=== PATIENT | male | born 1985 | race Caucasian/White ===

== ENCOUNTER → 2022-03-26 | Outpatient (CLI) | payer OTHER ==
[~2022-03-26] MED LIST: BACTRIM DS 8001 TAB PO; CEPHALEXIN250 M1 PO; CLARITIN 1010 MG/TAB; LEVAQUIN 750MG750 M1 PO; MAGIC MOUTH PO; NAPRELAN500 MG; NO HOME MEDICATIONS; NULEV0.125 M1 PO; PEN-VEE K500 MG PO; TYLENOL EXTRA500 M1 PO; ULTRAM 50MG TAB50 MG PO
== END ==
LOC: MHCPAIN 08:20
DX: M47.812 Spondylosis without myelopathy or radiculopathy, cervical region (principal); M54.12 Radiculopathy, cervical region; M25.511 Pain in right shoulder; M25.512 Pain in left shoulder
CPT/HCPCS: G0463

== ENCOUNTER → 2022-04-04 | Outpatient (CLI) | payer OTHER | LOC: MHCPAIN 12:31 | DX: M47.812 Spondylosis without myelopathy or radiculopathy, cervical region (principal); M54.12 Radiculopathy, cervical region | CPT/HCPCS: J1100; Q9967 ==

== ENCOUNTER → 2022-04-16 | Outpatient (CLI) | payer OTHER | LOC: MHCPAIN 15:05 | DX: M47.812 Spondylosis without myelopathy or radiculopathy, cervical region (principal); M54.2 Cervicalgia; M54.12 Radiculopathy, cervical region | CPT/HCPCS: G0463 ==

== ENCOUNTER → 2022-05-28 | Outpatient (CLI) | payer OTHER | LOC: MHCPAIN 07:47 | DX: M47.812 Spondylosis without myelopathy or radiculopathy, cervical region (principal); M54.12 Radiculopathy, cervical region; M79.2 Neuralgia and neuritis, unspecified | CPT/HCPCS: G0463 ==

== ENCOUNTER → 2022-05-30 | Outpatient (CLI) | payer OTHER | LOC: MHCPAIN 13:44 | DX: M47.812 Spondylosis without myelopathy or radiculopathy, cervical region (principal); M54.12 Radiculopathy, cervical region | CPT/HCPCS: J1100; Q9967 ==

== ENCOUNTER → 2022-07-02 | Outpatient (CLI) | payer OTHER | LOC: MHCPAIN 07:54 | DX: M54.12 Radiculopathy, cervical region (principal); M79.2 Neuralgia and neuritis, unspecified; M25.512 Pain in left shoulder; M25.511 Pain in right shoulder | CPT/HCPCS: G0463 ==